=== PATIENT | male | born 1935 | race Caucasian/White ===

== ENCOUNTER 2019-04-04 19:55 | Emergency (ER) | payer OTHER, BC ==
[2019-04-04 20:09] VITALS: BMI 25.0
[2019-04-04] MEDS ORDERED: SODIUM CHLORIDE 1,000 ML IV SCH ×2 (20:15→22:02)
--- NOTE | 2019-04-04 20:25 | PDOC ---
Documentation entered by Kenyatta Gibson SCRIBE, acting as scribe for Sharmila Mccoy MD. Sharmila Mccoy MD: This documentation has been prepared by the Arthur stark Nirvannie, SCRIBE, under my direction and personally reviewed by me in its entirety. I confirm that the documentation accurately reflects all work, treatment, procedures, and medical decision making performed by me. History of Present Illness - General Chief Complaint: Nausea/Vomiting Stated Complaint: VOMITED X 2 Time Seen by Provider: 04/04/19 20:06 History Source: Patient Exam Limitations: No Limitations - History of Present Illness Initial Comments: 04/04/19 20:23 HPI: The patient is a 83 year old male, with a significant past medical history of SBO (12/2018), MD, hypertension, and gout, who presents to the emergency department with 2.5 days of abdominal pain with associated nausea and one episode of emesis. As per patient, for the past 2.5 days he has been experiencing diffuse abdominal pain which was alleviated after passing a bowel movement (previously constipated for 4 days). He notes today he has been nauseous, had decreased PO intake, and cough. at bedside notes after taking a small amount of ensure he began to spit a substance that resembled bile. Patient notes to have been worried he was obstructed once again, prompting his arrival to the ED. He denies any rectal bleeding. He denies any recent fevers, chills, headache or dizziness. He denies any recent chest pain or shortness of breath. He denies any recent dysuria, frequency, urgency or hematuria. PAST MEDICAL HISTORY: no significant history PAST SURGICAL HISTORY: no significant history FAMILY HISTORY: no pertinent history SOCIAL HISTORY: Pt lives with family and is employed. MEDICATIONS: reviewed ALLERGIES: As per nursing notes ROS: General: No fevers or chills, no weakness, no weight loss HEENT: No change in vision. No sore throat,. No ear pain CardioVascular: No chest pain or shortness of breath Respiratory:No cough, or wheezing. Gastrointestinal: +nausea, vomiting, constipation. No diarrhea or rectal bleeding Genitourinary: No dysuria, hematuria, or frequency Musculoskeletal: No joint or muscle pain or swelling Neurologic: No headache, vertigo, dizziness or loss of consciousness Psychiatric: nor depression Skin: No rashes or easy bruising Endocrine: no increased thirst or abnormal weight change Allergic: no skin or latex allergy All other systems reviewed and normal Physical Exam: General: Well-nourished well-developed individual, no acute distress HEENT: Throat: Normal, tonsils normal, no erythema or exudate Neck: Supple, no meningeal signs, no lymphadenopathy Eyes::Pupils equal reactive and round, extraocular motion intact Chest: Nontender to palpation Cardiac: +Tachycardic regular rhythm, no murmurs rubs or gallops Respiratory: Lungs clear to auscultation bilateral Abdomen: Soft, nondistended, normal bowel sounds,+ Mild tenderness to the right lower quadrant without guarding or rebound. Extremities: Warm, dry, no cyanosis, clubbing, or edema Skin: No rashes Neuro: Alert and oriented x3, nonfocal exam, grossly intact Psych: Normal mood and affect This is an 83-year-old male who comes in complaining of abdominal discomfort. Patient's history is significant for Incarcerated hernia in the past. Patient comes in complaining of no bowel movement for 4 days and then taking laxatives. Patient said after taking laxatives he had some diarrhea and his abdominal distention and discomfort resolved with the exception of some mild lower abdominal discomfort patient denies any fevers or chills.. Patient was coughing earlier this afternoon and vomited x1. states patient's appetite has been down and his activity level has been down as well. Patient did have some mild right lower quadrant abdominal tenderness on my exam otherwise normal exam Work-up initiated including CBC, comp, flat and upright, lipase, lactic acid. 04/05/19 23:30 Discussed this patient with Dr. Braga. Dr. Veloz is concerned with the fact that we have no beds at [facility] patient will need an ICU bed given his lactic acid of 6.1 and his small bowel obstruction. Patient had all of his prior care and surgery [address] [facility] and Dr. Veloz felt he might be better served at [facility]. Discussed possible admission with the hospitalist who also felt patient was better served by transferring him to the [facility]. 00:45 [facility] was called and patient was accepted to Dr. TATE service for transfer to the [facility] Past History - Past Medical History Allergies/Adverse Reactions: Allergies Allergy/AdvReac Type Severity Reaction Status Date / Time No Known Allergies Allergy Verified 04/04/19 20:01 Home Medications: Ambulatory Orders Metoprolol Tartrate [Lopressor -] 50 mg PO BID 08/12/13 Triamterene/Hydrochlorothiazid [Triamterene-Hctz 50-25 mg Cap] 1 each PO DAILY 08/12/13 Lisinopril [Zestril] 2.5 mg PO DAILY 07/08/15 Omeprazole 20 mg PO DAILY 07/08/15 Fluoxetine HCl [Prozac] 40 mg PO DAILY 07/28/15 Betoptic S 0.25% - 1 drop OU BID 07/29/15 Brimonidine Tartrate [Alphagan P 0.1% -] 1 drop OU BID 07/29/15 Pilocarpine 4% [Pilostat 4% -] 1 drop OU BID 07/29/15 Walker [Ultra-Light Rollator] 1 each MC DAILY #1 each 07/30/15 Albuterol 0.083% Nebulizer Mini [Ventolin 0.083%] 1 neb NEB QID 04/04/19 Atorvastatin Ca [Lipitor] 40 mg PO HS 04/04/19 Fluticasone/Vilanterol [Breo Ellipta 100-25 Mcg INH] 1 each IH DAILY 04/04/19 COPD: No GI Disorders: Yes (HIATAL HERNIA) HTN: Yes - Psycho Social/Smoking Cessation Hx Smoking Status: No Smoking History: Never smoked Have you smoked in the past 12 months: No Number of Cigarettes Smoked Daily: 0 Cigars Per Day: 0 Information on smoking cessation initiated: No Hx Alcohol Use: No Drug/Substance Use Hx: No Substance Use Type: None Hx Substance Use Treatment: No *Physical Exam - Vital Signs Last Vital Signs Temp Pulse Resp BP Pulse Ox 98.9 F 95 H 16 155/68 100 04/04/19 20:05 04/04/19 20:05 04/04/19 20:05 04/04/19 20:05 04/04/19 20:05 ED Treatment Course - LABORATORY CBC & Chemistry Diagram: 04/04/19 20:25 04/04/19 20:25 - RADIOLOGY Radiology Studies Ordered: Category Date Time Status ABDOMEN FLAT & UPRIGHT [RAD] Stat Radiology 04/04/19 20:12 Ordered Discharge - Discharge Information Problems reviewed: Yes Clinical Impression/Diagnosis: Small bowel obstruction, Sepsis Condition: Stable Disposition: TRANSFER ACUTE CARE/OTHER HOSP - Follow up/Referral Referrals: Matthias Plunkett MD [Primary Care Provider] - - Patient Discharge Instructions - Post Discharge Activity
[2019-04-04 20:37] LABS: HEMATOCRIT 40.2 % (35.4-49); HEMOGLOBIN 13.3 GM/dl (11.7-16.9); MCH 29.9 pg (25.7-33.7); MCHC 33.1 g/dl (32.0-35.9); MEAN CELL VOLUME 90.4 fl (80-96); MEAN PLT VOLUME 8.4 fl (7.5-11.1); PLATELET COUNT 280 K/MM3 (134-434); RBC 4.45 M/mm3 (4.00-5.60); RDW 14.5 % (11.9-15.9); WHITE BLOOD COUNT 15.8 K/mm3 (4.0-10.8)
[2019-04-04 20:46] LABS: ALBUMIN 3.2 g/dl (3.4-5.0); BILIRUBIN,TOTAL 0.9 mg/dl (0.2-1); CREATININE 1.2 mg/dl (0.55-1.3); POTASSIUM 3.8 mmol/L (3.5-5.1); TOT PROT 7.4 g/dl (6.4-8.2)
[2019-04-04 20:57] LABS: PLATELET ESTIMATE ADEQUATE
[2019-04-04] MEDS ORDERED: CEFTRIAXONE 1,000 MG in DEXTROSE 5%-WATER - 50 ML IVPB ONE (21:02)
[2019-04-04] MEDS ORDERED: cefTRIAXone SODIUM 1 GM VIAL ONE (21:08)
[2019-04-04] MEDS ORDERED: ONDANSETRON 4 MG/2 ML VIAL IVPUSH ONE (21:50)
[2019-04-04] MEDS ORDERED: ONDANSETRON 4 MG/2 ML VIAL ONE (21:52)
[2019-04-04] MEDS ORDERED: SODIUM CHLORIDE 1,000 ML IV ONE ×2 (23:41→23:56)
[2019-04-05] MEDS ORDERED: PIPERACILLIN/TAZOB 4.5 GM 4.5 GM in DEXTROSE 5%-WATER 100 ML IVPB ONE (00:13)
[2019-04-05] MEDS ORDERED: PIPERACILLIN/TAZOBACTAM 4.5 GM VIAL IVPB ONE (00:21)
[2019-04-05 00:40] VITALS: BP 116/56; PULSE 73; TEMP 99.3
--- NOTE | 2019-04-05 09:42 | EKG ---
Test Reason : Blood Pressure : / mmHG Vent. Rate : 087 BPM Atrial Rate : 087 BPM P-R Int : 168 ms QRS Dur : 092 ms QT Int : 428 ms P-R-T Axes : 068 -40 038 degrees QTc Int : 515 ms SINUS RHYTHM WITH PREMATURE ATRIAL COMPLEXES WITH ABERRANT CONDUCTION LEFT AXIS DEVIATION MINIMAL VOLTAGE CRITERIA FOR LVH, MAY BE NORMAL VARIANT NONSPECIFIC ST AND T WAVE ABNORMALITY PROLONGED QT ABNORMAL ECG NO PREVIOUS ECGS AVAILABLE Confirmed by Jocelyn EVANS, Cachorro ([id number]) on 04/05/2019 9:41:55 AM Referred By: MIRTA LOVE Confirmed By:Cachorro Banks MD
== END 2019-04-05 01:45 | disposition short-term general hospital (02) ==
LOC: FER 19:55
PROC: 3E0337Z Introduction of Electrolytic and Water Balance Substance into Peripheral Vein, Percutaneous Approach (ICD-10-PCS; principal; 2019-04-04)
PROC: 3E03329 Introduction of Other Anti-infective into Peripheral Vein, Percutaneous Approach (ICD-10-PCS; 2019-04-04)
PROC: 3E033GC Introduction of Other Therapeutic Substance into Peripheral Vein, Percutaneous Approach (ICD-10-PCS; 2019-04-04)
DX: I25.2 Old myocardial infarction (principal); M10.9 Gout, unspecified; K56.609 Unspecified intestinal obstruction, unspecified as to partial versus complete obstruction; I10 Essential (primary) hypertension
CPT/HCPCS: 36415; 71045-TC-FY; 74019-TC-FY; 74177-TC; 80053; 81003; 81015; 83605; 83690; 85025; 87086; 87186; 93005; 99285-25; J7030; Q9967

== ENCOUNTER 2022-05-05 18:12 | Emergency (ER) | payer OTHER, BC ==
[2022-05-05 18:29] VITALS: BP 150/67; PULSE 68; RESP 18; TEMP 98; BMI 28.1
[2022-05-05] MEDS ORDERED: KETOROLAC TROMETHAMINE 30 MG/1 ML VIAL IVPUSH ONE (19:09)
[2022-05-05] MEDS ORDERED: KETOROLAC TROMETHAMINE 30 MG/1 ML VIAL ONE (19:39)
[2022-05-05 19:46] LABS: HEMATOCRIT 42.2 % (35.4-49); HEMOGLOBIN 14.6 G/dL (11.7-16.9); MCH 32.1 pg (25.7-33.7); MCHC 34.6 g/dl (32.0-35.9); MEAN CELL VOLUME 92.7 fl (80-96); MEAN PLT VOLUME 7.7 fl (7.5-11.1); PLATELET COUNT 181.2 10^3/uL (134-434); RBC 4.55 10^6/uL (4.00-5.60); RDW 13.6 % (11.9-15.9); WHITE BLOOD COUNT 9.7 10^3/uL (4.0-10.8)
[2022-05-05 20:00] LABS: ALBUMIN 3.8 g/dl (3.4-5.0); BILIRUBIN,TOTAL 0.8 mg/dl (0.2-1); CALCIUM 9.2 mg/dl (8.5-10); CREATININE 1.3 mg/dl (0.55-1.3); TOT PROT 7.4 g/dl (6.4-8.2); URIC ACID 7.8 mg/dl (2.6-7.2)
[2022-05-05] MEDS ORDERED: predniSONE 20 MG TABLET (UD) PO ONE (20:39)
[2022-05-05] MEDS ORDERED: predniSONE 20 MG TABLET (UD) ONE (20:53)
== END 2022-05-05 21:05 | disposition home or self-care (01) ==
LOC: FER 18:12
PROC: 3E0333Z Introduction of Anti-inflammatory into Peripheral Vein, Percutaneous Approach (ICD-10-PCS; principal; 2022-05-05)
DX: M10.9 Gout, unspecified (principal)
CPT/HCPCS: 36415; 80053; 81003; 81015; 84550; 85027; 99284-25

== ENCOUNTER 2022-05-28 07:07 | Day surgery (SDC) | payer OTHER, BC ==
[2022-05-26 14:58] VITALS: BMI 28.1
[2022-05-28] MEDS ORDERED: PHENYLEPHRINE/KETOROLAC 4 ML VIAL IO ONE ×2 (07:14→08:43)
[2022-05-28] MEDS ORDERED: LIDOCAINE 1% P/F 10 MG/ML VIAL ONE (07:15)
[2022-05-28] MEDS ORDERED: CARBACHOL 0.01% INTRA-OCULAR 1.5 ML VIAL ONE (07:15)
[2022-05-28] MEDS ORDERED: BSS (NA/CA/MG/K) BALANCED SALT SOLUTION OPHTH SOLN 15 ML BOTTLE ONE (07:15)
[2022-05-28] MEDS ORDERED: TETRACAINE 0.5% OPHTH SOLN 2 ML BOTTLE ONE (07:15)
[2022-05-28] MEDS ORDERED: ACETYLCHOLINE 1:100 INTRA-OCUL 20 MG/2 ML KIT ONE (07:15)
[2022-05-28] MEDS ORDERED: NEO/POLYMYX B SULF/DEXAMETH OPHTHALMIC 5ML BOTTLE ONE (07:15)
[2022-05-28] MEDS ORDERED: TRYPAN BLUE 0.5 ML DISP.SYRIN ONE (07:15)
[2022-05-28] MEDS ORDERED: EPINEPHrine/PF 1 MG/1 ML (1:1,000) AMPULE ONE (07:15)
[2022-05-28 07:35] VITALS: TEMP 97.1
[2022-05-28] MEDS: TROPICAMIDE 1% OPHTH SOLN 15 ML BOTTLE ONE ×3 (07:55→08:05)
[2022-05-28] MEDS: PHENYLEPHRINE 2.5% OPTHALMIC DROP 2ML BOTTLE ONE ×3 (07:55→08:05)
[2022-05-28] MEDS: CIPROFLOXACIN 0.3% EYE DROPS 5 ML BOTTLE ONE ×3 (07:55→08:05)
[2022-05-28] MEDS: CYCLOPENTOLATE 2% OPHTH SOLN 2 ML BOTTLE ONE ×3 (07:55→08:05)
[2022-05-28] MEDS ORDERED: MIDAZOLAM HCL 2 MG/2 ML SINGLE DOSE VIAL ONE (08:12)
[2022-05-28 10:35] VITALS: BP 156/54; PULSE 56; RESP 18
== END 2022-05-28 10:30 | disposition home or self-care (01) ==
LOC: FASU 07:07
PROVIDERS: ATTEND Ophthalmology
PROC: 08RK3JZ Replacement of Left Lens with Synthetic Substitute, Percutaneous Approach (ICD-10-PCS; principal; 2022-05-28 09:00)
DX: H26.8 Other specified cataract (principal); H21.542 Posterior synechiae (iris), left eye
CPT/HCPCS: 66982; V2632; J1097

== ENCOUNTER 2022-08-14 09:28 | Day surgery (SDC) | payer OTHER, BC ==
[2022-08-08 15:12] VITALS: BMI 28.1
[2022-08-14] MEDS ORDERED: CARBACHOL 0.01% INTRA-OCULAR 1.5 ML VIAL ONE (09:52)
[2022-08-14] MEDS ORDERED: NEO/POLYMYX B SULF/DEXAMETH OPHTHALMIC 5ML BOTTLE ONE (09:52)
[2022-08-14] MEDS ORDERED: EPINEPHrine/PF 1 MG/1 ML (1:1,000) AMPULE ONE (09:52)
[2022-08-14] MEDS ORDERED: TETRACAINE 0.5% OPHTH SOLN 2 ML BOTTLE ONE (09:52)
[2022-08-14] MEDS ORDERED: LIDOCAINE 1% P/F 10 MG/ML VIAL ONE (09:52)
[2022-08-14] MEDS ORDERED: BSS (NA/CA/MG/K) BALANCED SALT SOLUTION OPHTH SOLN 15 ML BOTTLE ONE (09:52)
[2022-08-14] MEDS: CIPROFLOXACIN 0.3% EYE DROPS 5 ML BOTTLE ONE ×3 (10:10→10:20)
[2022-08-14] MEDS: TROPICAMIDE 1% OPHTH SOLN 15 ML BOTTLE ONE ×3 (10:10→10:20)
[2022-08-14] MEDS: PHENYLEPHRINE 2.5% OPTHALMIC DROP 2ML BOTTLE ONE ×3 (10:10→10:20)
[2022-08-14] MEDS: CYCLOPENTOLATE 2% OPHTH SOLN 2 ML BOTTLE ONE ×3 (10:10→10:20)
[2022-08-14 10:11] VITALS: RESP 16
[2022-08-14 13:18] VITALS: TEMP 97.6
[2022-08-14 13:35] VITALS: BP 133/66; PULSE 56
== END 2022-08-14 13:10 | disposition home or self-care (01) ==
LOC: FASU 09:28
PROVIDERS: ATTEND Ophthalmology
PROC: 08RJ3JZ Replacement of Right Lens with Synthetic Substitute, Percutaneous Approach (ICD-10-PCS; principal; 2022-08-14 11:47)
DX: H26.8 Other specified cataract (principal); H21.541 Posterior synechiae (iris), right eye
CPT/HCPCS: 66982; V2632